=== PATIENT | female | born 1950 | race American Indian/Alaskan Native ===

== ENCOUNTER 2017-02-19 11:09 | Inpatient (IN) | payer MEDICARE ==
[2017-02-19 11:54] LABS: Basophils % (Auto) 0.6 % (0.0-1.8); Eosinophils % (Auto) 1.9 % (0.0-4.3); Mean Corpuscular HGB Conc 31 % (30-34); Mean Corpuscular Volume 83 fl (79-97); Platelet Count 340 K/mm3 (140-440); Red Blood Count 4.74 M/mm3 (3.65-5.03); Red Cell Distribution Width 15.6 % (13.2-15.2); White Blood Count 12.2 K/mm3 (4.5-11.0)
[2017-02-19 12:03] LABS: Hematocrit 39.2 % (30.3-42.9); Mean Corpuscular Hemoglobin 25 pg (28-32)
[2017-02-19 12:21] LABS: Albumin 3.7 g/dL (3.9-5); Albumin/Globulin Ratio 1.3 %; BUN/Creatinine Ratio 14.28; Bilirubin,Total 0.3 mg/dL (0.1-1.2); Chloride 106.1 mmol/L (98-107); Potassium 4.5 mmol/L (3.6-5.0); Total Protein 6.5 g/dL (6.3-8.2)
[2017-02-19 12:22] LABS: INR 1.05 (0.87-1.13)
[2017-02-19 12:23] LABS: Partial Thromboplastin Time 25.4 Sec. (24.2-36.6)
--- NOTE | 2017-02-19 13:00 | XRay Report ---
AP CHEST: HISTORY: Dyspnea AP view of the chest demonstrates a normal mediastinal and cardiac contour with clear lungs and normal bony and soft tissue structures. IMPRESSION: Unremarkable AP chest.
--- NOTE | 2017-02-19 13:52 | Emergency Department Report ---
ED General Adult HPI - General Chief complaint: Dyspnea/Respdistress Stated complaint: SVT Time Seen by Provider: 02/19/17 11:38 Source: patient, EMS Mode of arrival: Stretcher Limitations: No Limitations - History of Present Illness Initial comments: Pt was transported via EMS for evaluation of a rapid heart rate. She was found to be in SVT at approximately 160. She was cardioverted with 6 mgs of Adenosene. The patient states that approximately 6 months ago she had a similar episode but she was not seen by a director online marketing or in the emergency department. She denies any previous treatment by a director online marketing. She is somewhat guarded about giving medical history. She states she does not know her medications that she is on medicine for hypertension and diabetes. She stated she had some shortness of breath with the tachycardia but no chest discomfort. She is asymptomatic at this time after successful cardioversion with adenosine. -: Sudden, minutes(s) Consistency: now resolved Improves with: none Worsens with: none Associated Symptoms: denies other symptoms Treatments Prior to Arrival: none - Related Data Home Medications Medication Instructions Recorded Confirmed Last Taken Albuterol Sulfate [Ventolin HFA] 1 puff IH Q4-6H 02/19/17 02/19/17 02/18/17 Budesoni/Formotero 160-4.5(Nf) 2 puff IH BID 02/19/17 02/19/17 02/18/17 [Symbicort 160-4.5 (Nf)] Simvastatin [Zocor TAB] 20 mg PO QHS 02/19/17 02/19/17 02/18/17 Tamoxifen Citrate 10 mg PO QDAY 02/19/17 02/19/17 02/18/17 Valsartan/Hydrochlorothiazide 1 each PO DAILY 02/19/17 02/19/17 02/18/17 [Valsartan-Hctz 80-12.5 mg Tab] metFORMIN [Glucophage] 500 mg PO QDAY 02/19/17 02/19/17 02/18/17 Allergies Allergy/AdvReac Type Severity Reaction Status Date / Time No Known Allergies Allergy Unverified 02/19/17 11:19 ED Review of Systems ROS: Stated complaint: SVT Other details as noted in HPI Constitutional: denies: chills, fever Eyes: denies: eye pain, eye discharge, vision change ENT: denies: ear pain, throat pain Respiratory: shortness of breath. denies: cough, wheezing Cardiovascular: denies: chest pain, palpitations Endocrine: no symptoms reported Gastrointestinal: denies: abdominal pain, nausea, diarrhea Genitourinary: denies: urgency, dysuria, discharge Musculoskeletal: denies: back pain, joint swelling, arthralgia Skin: denies: rash, lesions Neurological: denies: headache, weakness, paresthesias Psychiatric: denies: anxiety, depression Hematological/Lymphatic: denies: easy bleeding, easy bruising ED Past Medical Hx - Past Medical History Previous Medical History?: Yes Hx Hypertension: Yes Hx Diabetes: Yes Hx Asthma: Yes - Surgical History Past Surgical History?: Yes Additional Surgical History: tubaligation - Social History Smoking Status: Never Smoker Substance Use Type: None - Medications Home Medications: Home Medications Medication Instructions Recorded Confirmed Last Taken Type Albuterol Sulfate [Ventolin HFA] 1 puff IH Q4-6H 02/19/17 02/19/17 02/18/17 History Budesoni/Formotero 160-4.5(Nf) 2 puff IH BID 02/19/17 02/19/17 02/18/17 History [Symbicort 160-4.5 (Nf)] Simvastatin [Zocor TAB] 20 mg PO QHS 02/19/17 02/19/17 02/18/17 History Tamoxifen Citrate 10 mg PO QDAY 02/19/17 02/19/17 02/18/17 History Valsartan/Hydrochlorothiazide 1 each PO DAILY 02/19/17 02/19/17 02/18/17 History [Valsartan-Hctz 80-12.5 mg Tab] metFORMIN [Glucophage] 500 mg PO QDAY 02/19/17 02/19/17 02/18/17 History ED Physical Exam - General Limitations: No Limitations General appearance: alert, in no apparent distress - Head Head exam: Present: atraumatic, normocephalic - Eye Eye exam: Present: normal appearance. Absent: scleral icterus - ENT ENT exam: Present: mucous membranes moist - Neck Neck exam: Present: normal inspection - Respiratory Respiratory exam: Present: normal lung sounds bilaterally. Absent: respiratory distress - Cardiovascular Cardiovascular Exam: Present: regular rate, normal rhythm. Absent: systolic murmur, diastolic murmur, rubs, gallop - GI/Abdominal GI/Abdominal exam: Present: soft, normal bowel sounds. Absent: distended, tenderness, guarding, rebound, rigid - Extremities Exam Extremities exam: Present: normal inspection - Back Exam Back exam: Present: normal inspection - Neurological Exam Neurological exam: Present: alert, oriented X3, CN II-XII intact. Absent: motor sensory deficit - Psychiatric Psychiatric exam: Present: normal affect, normal mood - Skin Skin exam: Present: warm, dry, intact, normal color. Absent: rash ED Course Vital Signs 02/19/17 02/19/17 02/19/17 11:06 11:12 11:31 Temperature 97.9 F Pulse Rate 96 H 94 H 93 H Respiratory 10 L 19 12 Rate Blood Pressure 94/64 94/64 Blood Pressure 94/64 [Left] O2 Sat by Pulse 99 99 100 Oximetry 02/19/17 02/19/17 02/19/17 11:35 12:00 12:31 Temperature Pulse Rate 90 87 Respiratory 19 13 18 Rate Blood Pressure 101/56 101/56 Blood Pressure [Left] O2 Sat by Pulse 99 99 Oximetry 02/19/17 02/19/17 02/19/17 13:00 13:31 14:00 Temperature Pulse Rate 91 H 88 85 Respiratory 22 21 17 Rate Blood Pressure 84/51 84/51 116/72 Blood Pressure [Left] O2 Sat by Pulse 99 98 96 Oximetry - Reevaluation(s) Reevaluation #1: The patient states now that she has been feeling weak and nauseated for the last several days. Although I was not notified by the nurse I do see that the patient has had several blood pressure readings in the 80s. Therefore we will admit the patient for further care and evaluation in the hospital today. 02/19/17 15:36 Reevaluation #2: Patient was noted to be intermittently hypotensive. She was admitted to the hospital service further care and evaluation and cardiac workup. 02/19/17 16:33 ED Medical Decision Making - Lab Data Result diagrams: 02/19/17 11:39 02/19/17 11:39 Laboratory Results - last 24 hr 02/19/17 02/19/17 02/19/17 11:39 11:39 11:55 WBC 12.2 H RBC 4.74 Hgb 12.0 Hct 39.2 MCV 83 MCH 25 L MCHC 31 RDW 15.6 H Plt Count 340 Lymph % (Auto) 12.2 L [place] % (Auto) 6.6 Eos % (Auto) 1.9 Baso % (Auto) 0.6 Lymph # 1.5 [place] # 0.8 Eos # 0.2 Baso # 0.1 Seg Neutrophils % 78.7 H Seg Neutrophils # 9.6 H PT 13.6 INR 1.05 APTT 25.4 Sodium 141 Potassium 4.5 Chloride 106.1 Carbon Dioxide 19 L Anion Gap 20 BUN 20 H Creatinine 1.4 H Estimated GFR 45 BUN/Creatinine Ratio 14.28 Glucose 156 H Calcium 10.0 Total Bilirubin 0.30 ALT 12 Alkaline Phosphatase 65 Total Protein 6.5 Albumin 3.7 L Albumin/Globulin Ratio 1.3 Laboratory Results - last 24 hr 02/19/17 02/19/17 02/19/17 11:39 11:39 11:55 WBC 12.2 H RBC 4.74 Hgb 12.0 Hct 39.2 MCV 83 MCH 25 L MCHC 31 RDW 15.6 H Plt Count 340 Lymph % (Auto) 12.2 L [place] % (Auto) 6.6 Eos % (Auto) 1.9 Baso % (Auto) 0.6 Lymph # 1.5 [place] # 0.8 Eos # 0.2 Baso # 0.1 Seg Neutrophils % 78.7 H Seg Neutrophils # 9.6 H PT 13.6 INR 1.05 APTT 25.4 Sodium 141 Potassium 4.5 Chloride 106.1 Carbon Dioxide 19 L Anion Gap 20 BUN 20 H Creatinine 1.4 H Estimated GFR 45 BUN/Creatinine Ratio 14.28 Glucose 156 H Calcium 10.0 Total Bilirubin 0.30 ALT 12 Alkaline Phosphatase 65 Total Protein 6.5 Albumin 3.7 L Albumin/Globulin Ratio 1.3 AST 18 Laboratory Results - last 24 hr 02/19/17 02/19/17 02/19/17 11:39 11:39 11:48 WBC 12.2 H RBC 4.74 Hgb 12.0 Hct 39.2 MCV 83 MCH 25 L MCHC 31 RDW 15.6 H Plt Count 340 Lymph % (Auto) 12.2 L [place] % (Auto) 6.6 Eos % (Auto) 1.9 Baso % (Auto) 0.6 Lymph # 1.5 [place] # 0.8 Eos # 0.2 Baso # 0.1 Seg Neutrophils % 78.7 H Seg Neutrophils # 9.6 H PT INR APTT Sodium 141 Potassium 4.5 Chloride 106.1 Carbon Dioxide 19 L Anion Gap 20 BUN 20 H Creatinine 1.4 H Estimated GFR 45 BUN/Creatinine Ratio 14.28 Glucose 156 H Calcium 10.0 Magnesium 2.00 Total Bilirubin 0.30 AST 18 ALT 12 Alkaline Phosphatase 65 NT-Pro-B Natriuret Pep 2639 H Total Protein 6.5 Albumin 3.7 L Albumin/Globulin Ratio 1.3 TSH Free T4 02/19/17 02/19/17 11:55 11:55 WBC RBC Hgb Hct MCV MCH MCHC RDW Plt Count Lymph % (Auto) [place] % (Auto) Eos % (Auto) Baso % (Auto) Lymph # [place] # Eos # Baso # Seg Neutrophils % Seg Neutrophils # PT 13.6 INR 1.05 APTT 25.4 Sodium Potassium Chloride Carbon Dioxide Anion Gap BUN Creatinine Estimated GFR BUN/Creatinine Ratio Glucose Calcium Magnesium Total Bilirubin AST ALT Alkaline Phosphatase NT-Pro-B Natriuret Pep Total Protein Albumin Albumin/Globulin Ratio TSH 1.120 Free T4 1.10 - EKG Data -: EKG Interpreted by [facility] EKG shows normal: sinus rhythm (post cardioversion EKG), axis, intervals, QRS complexes, ST-T waves - EKG Data Interpretation: LVH (consider LVH. Left atrial abnormality. Inferolateral ST- T wave changes.) 02/19/17 14:35 Pre-hospital EKG shows SVT at approximately 160. There are diffuse repolarization abnormalities. - Radiology Data Chest x-ray no acute findings Critical care attestation.: If time is entered above; I have spent that time in minutes in the direct care of this critically ill patient, excluding procedure time. ED Disposition Clinical Impression: SVT (supraventricular tachycardia) Disposition: OP ADMITTED IP TO THIS HOSP Is pt being admited?: Yes Does the pt Need Aspirin: Yes Condition: Stable Referrals: PRIMARY CARE, [Primary Care Provider] - 3-5 Days Time of Disposition: 16:33
--- NOTE | 2017-02-19 14:23 | Admit Criteria Form ---
Admission Criteria Documentation: TELEMETRY CARE Telemetry Admission Guidelines (Place 'X' for any and all applicable criteria): Admission to telemetry [A] may be indicated for ANY ONE of the following(1)(2)(3 )(4)(5): [X ]I. Cardiac disease, including ANY ONE of the following (9)(10)(11)(12)( 13): [ ]a) Postacute NV [ ]b) Low-risk patients with ST-segment elevation NV who have undergone successful percutaneous coronary intervention [ ]c) Unstable angina [ ]d) Suspected NV (until it is ruled out) [ ]e) Post cardiac surgery (first 48 to 72 hours unless complications occur) [X ]f) Acute arrhythmias (including significant tachycardia or bradycardia) [B] [ ]g) Firing of an implantable cardioverter defibrillator [C] [ ]h) Suspected pacemaker or implantable cardioverter defibrillator malfunction (10) [ ]i) New administration or adjustment of an antiarrhythmic drug [D ] [ ]j) Child admitted for acute congestive heart failure [ ]j) Long QT syndrome [ ]k) Advanced heart block (eg, second-degree Mobitz type II, third- degree heart block) [ ]l) Acute myocarditis or pericarditis [ ]m) Short-term (ambulatory or inpatient) monitoring after a cardiac procedure as indicated by ANY ONE of the following [E]: [ ]i) Electrophysiologic studies [ ]ii) Percutaneous coronary intervention with stent placement [ ]iii) Pacemaker placement with cardiac conduction defect [ ]iv) Implantable cardiac defibrillator placement [ ]II. Drug overdose or poisoning with substance that causes arrhythmias or QT prolongation (eg, phenothiazines, sympathomimetic agents, cyclic antidepressants, digitalis, antiarrhythmic drugs)(15) [ ]III. Short-term (ambulatory or inpatient) monitoring after therapeutic or diagnostic procedure requiring conscious sedation or anesthesia (eg, endoscopy, elective cardioversion) [ ]IV. Acute cerebrovascular even[F](18) [ ]V. Massive blood transfusion (eg, at least 10 units of packed red blood cells in 24 hours) [ ]. Variceal bleeding after endoscopy, sclerotherapy, or IV vasopressin [ ]VII. Uncorrected electrolyte abnormalities associated with an increased risk of dangerous arrhythmia [G]; examples include [ ]a) Hyperkalemia with attributable ECG changes [ ]b) Potassium greater than 6.5 mmol/L (mEq/L) in a patient without history of chronic renal disease [ ]c) Prolonged QT attributed to hypokalemia, hypomagnesemia, or hypocalcemia [ ]VIII.Unexplained syncope or other neurologic event suspected of being due to arrhythmia due to a finding that increases risk; examples include(19)(20)(21): [ ]a) High-risk ECG findings (eg, bifascicular block, bradycardia, abnormal QT interval, ventricular pre- excitation) [ ]b) History of previous syncope due to arrhythmia [ ]c) Abnormal ventricular function (eg, reduced ejection fraction ) [ ]d) Exertional or supine syncope [ ]e) Concerning syncope characteristics (eg, sudden loss of consciousness without prodrome) [ ]f) Family history of sudden [ ]g) Use of arrhythmogenic medication [ ]h) Suspected cardiac ischemia [ ]i) Known channelopathy (eg, long QT syndrome, Brugada syndrome, or catecholaminergic paroxysmal ventricular tachycardia) [ ]j) Known structural heart disease (eg, hypertrophic cardiomyopathy , severe valvular disease) [ ]k) Palpitations preceding syncope The original [employer] content created by [employer] has been revised. The portions of the content which have been revised are identified through the use of italic text or in bold, and [email or web address] has neither reviewed nor approved the modified material. All other unmodified content is copyright [employer]. Please see references footnoted in the original [employer] edition 2016 Admission Criteria Met: Yes
[2017-02-19] MEDS ORDERED: BABY ASPIRIN PO ONE (16:35)
--- NOTE | 2017-02-19 23:37 | Event Note ---
Date: 02/19/17 See H/p in reports SVT-resolved HTN T2DM HLD COPD
[2017-02-20] MEDS ORDERED: PROAIR IH SCH (00:30)
[2017-02-20] MEDS ORDERED: PROVENTIL IH PRN (00:33)
--- NOTE | 2017-02-20 02:11 | History and Physical Report ---
CHIEF COMPLAINT: Palpitations. HISTORY OF PRESENT ILLNESS: A 66-year-old female brought in by EMS for heart rate of 160 per minute. Was cardioverted with 6 mg of adenosine. She is approximately . Has not seen a head teacher. She is somewhat guarded about giving medical history and does not know the medications. Sudden onset of palpitations. PAST MEDICAL HISTORY: Significant for COPD, hyperlipidemia, breast cancer, hypertension, type 2 diabetes. CURRENT MEDICATIONS: Albuterol, Symbicort, simvastatin, tamoxifen and valsartan and metformin. PAST SURGICAL HISTORY: Tubal ligation. SOCIAL HISTORY: Does not smoke. No alcohol, no recreational drugs. FAMILY HISTORY: Significant for hypertension. REVIEW OF SYSTEMS: Significant for a sudden onset of palpitations, which has resolved with adenosine. Some shortness of breath present. Otherwise, review of systems is essentially negative. PHYSICAL EXAMINATION: GENERAL: Elderly female, cooperative during examination. VITAL SIGNS: Blood pressure is 107/62, temperature is 98.3, pulse 93, respirations 16. HEENT: Unremarkable. Pupils equal and reactive. NECK: Supple, no lymphadenopathy, no thyromegaly. LUNGS: Clear to auscultation and percussion. Good air entry. CARDIOVASCULAR: S1, S2 heard. No gallop, no murmur, no rub. Apical impulse in left fifth intercostal space and midclavicular line. ABDOMEN: Soft and benign. No hepatosplenomegaly. No guarding, no rigidity. Hernial orifices are normal. EXTREMITIES: Good pedal pulses. No pedal edema. CENTRAL NERVOUS SYSTEM: Alert and oriented x 4, nonfocal exam. SKIN: Normal. LABORATORY DATA: Significant for BNP of 2639. Hemoglobin and hematocrit are within normal limits. Glucose is 156 and 134. Albumin is 3.7, slightly low. ASSESSMENT AND PLAN: 1. Supraventricular tachycardia, resolved. The patient initiated on Cardizem to prevent future supraventricular tachycardia. Cardizem-CD 120 daily. 2. Insulin-dependent type 2 diabetes, continue metformin. 3. Hyperlipidemia. Continue simvastatin. 4. Hypertension. Continue valsartan/hydrochlorothiazide 80/12.5. 5. Chronic obstructive pulmonary disease, continue Symbicort 2 puffs b.i.d. 6. Deep venous thrombosis prophylaxis, Lovenox 40 mg subcutaneously daily. [facility]# [id number] PAL/BJ
[2017-02-20] MEDS: NOVOLOG SUB-Q SCH ×2 (08:05→21:17)
[2017-02-20] MEDS: PULMICORT IH SCH ×2 (09:15→20:12)
[2017-02-20] MEDS: BROVANA NEBU IH SCH ×2 (09:15→20:12)
[2017-02-20] MEDS: HCTZ PO SCH (09:27)
[2017-02-20] MEDS: DIOVAN PO SCH (09:27)
[2017-02-20] MEDS: GLUCOPHAGE PO SCH (09:27)
[2017-02-20] MEDS: CARDIZEM CD PO SCH (09:28)
[2017-02-20] MEDS ORDERED: HYDROCHLOROTHIAZIDE PO SCH (10:00)
[2017-02-20] MEDS ORDERED: NON-FORMULARY (Budesoni/Formotero 160-4.5(Nf) 2 PUFF) IH SCH (10:00)
[2017-02-20] MEDS ORDERED: VALSARTAN PO SCH (10:00)
[2017-02-20] MEDS ORDERED: TAMOXIFEN CITRATE 10 MG PO SCH (10:00)
--- NOTE | 2017-02-20 10:42 | Consultation ---
History of Present Illness Consult date: 02/20/17 Requesting physician: JD SIGALA Consult reason: other (svt) History of present illness: This is a 66-year-old -[place] female with history of hypertension, hyperlipidemia, diabetes who has been having shortness of breath and associated palpitations on and off patient unable describe the duration was brought by EMS and was in heart rate of 170 and patient received 6 mg of adenosine and patient converted back to normal sinus rhythm patient since has not had any further episodes of palpitations on the monitor patient states shortness of breath has improved. Patient is a emotional with the recent loss of her sister. Patient denies any previous episodes of palpitations. Patient has some shortness of breath with exertion. Patient denies any caffeine intake or chocolate did not have any precipitating factors prior to that and no syncope. And patient had no melan or fever or chills Past History Past Medical History: COPD, diabetes, hypertension, hyperlipidemia, other ( questionable breast cancer) Past Surgical History: Other (tubal ligation) Social history: no significant social history Family history: no significant family history Medications and Allergies Allergies Allergy/AdvReac Type Severity Reaction Status Date / Time No Known Allergies Allergy Verified 02/20/17 00:32 Home Medications Medication Instructions Recorded Confirmed Last Taken Type Albuterol Sulfate [Ventolin HFA] 1 puff IH Q4-6H 02/19/17 02/19/17 02/18/17 History Budesoni/Formotero 160-4.5(Nf) 2 puff IH BID 02/19/17 02/19/17 02/18/17 History [Symbicort 160-4.5 (Nf)] Simvastatin [Zocor TAB] 20 mg PO QHS 02/19/17 02/19/17 02/18/17 History Tamoxifen Citrate 10 mg PO QDAY 02/19/17 02/19/17 02/18/17 History Valsartan/Hydrochlorothiazide 1 each PO DAILY 02/19/17 02/19/17 02/18/17 History [Valsartan-Hctz 80-12.5 mg Tab] metFORMIN [Glucophage] 500 mg PO QDAY 02/19/17 02/19/17 02/18/17 History Active Meds: Active Medications Albuterol (Proventil) 2.5 mg IH Q4HRT PRN PRN Reason: Shortness Of Breath Arformoterol Tartrate (Brovana Nebu) 15 mcg IH Q12HRT [facility] Last Admin: 02/20/17 09:15 Dose: 15 mcg Budesonide (Pulmicort) 1 mg IH Q12HRT [facility] Last Admin: 02/20/17 09:15 Dose: 1 mg Diltiazem HCl (Cardizem Cd) 120 mg PO QDAY [facility] Last Admin: 02/20/17 09:28 Dose: 120 mg Hydrochlorothiazide (Hctz) 12.5 mg PO QDAY [facility] Last Admin: 02/20/17 09:27 Dose: 12.5 mg Insulin Aspart (Novolog) 0 units SUB-Q ACHS [facility] PRN Reason: Protocol Last Admin: 02/20/17 08:05 Dose: Not Given Metformin HCl (Glucophage) 500 mg PO QDAY [facility] Last Admin: 02/20/17 09:27 Dose: 500 mg Miscellaneous Medication (Tamoxifen Citrate [Tamoxifen Citrate]) 10 mg PO QDAY [facility] Simvastatin (Zocor) 20 mg PO QHS [facility] Valsartan (Diovan) 80 mg PO QDAY [facility] Last Admin: 02/20/17 09:27 Dose: 80 mg Review of Systems All systems: negative (HPI) Physical Examination Vital Signs Pulse Resp Pulse Ox 96 H 10 L 99 02/19/17 11:06 02/19/17 11:06 02/19/17 11:06 General appearance: no acute distress, well-nourished HEENT: Positive: PERRL, Mucus Membranes Moist Neck: Positive: neck supple, trachea midline Cardiac: Positive: Reg Rate and Rhythm, S1/S2. Negative: Audible Murmur Lungs: Positive: clear to auscultation, Normal Breath Sounds Neuro: Positive: Grossly Intact Abdomen: Positive: Soft, Active Bowel Sounds. Negative: Tender, Distended Female genitourinary: deferred Skin: Positive: Clear Incision: Cardiac Cath Site Musculoskeletal: No Pain, Normal Range of Motion Extremities: Present: normal. Absent: edema Results 02/19/17 11:39 02/19/17 11:39 - Imaging and Cardiology Echo: pending EKG interpretations - Telemetry EKG Rhythm: Sinus Rhythm (sinus rhythm with LVH with strain pattern and EMS EKG SVT with LVH with strain) Assessment and Plan svt sob htn chol dm copd rec: cont cardizem, awaiting echo and treadmill thallium to ilict svt and quantify sob and elevated bnp - Patient Problems (1) SOBOE (shortness of breath on exertion) Current Visit: Yes Status: Acute (2) Hyperlipemia, mixed Current Visit: Yes Status: Chronic (3) Diabetes mellitus Current Visit: Yes Status: Chronic Qualifiers: Diabetes mellitus type: type 2 Diabetes mellitus complication status: without complication Diabetes mellitus complication detail: D Diabetic retinopathy severity: D Proliferative retinopathy type: P Diabetes mellitus macular edema: D Diabetes mellitus extermination supervisor insulin use: with extermination supervisor use Laterality: L Chronic kidney disease stage: C Qualified Code(s): E11.9 - Type 2 diabetes mellitus without complications; Z79.4 - terminal operator (current) use of insulin (4) Hypertension Current Visit: Yes Status: Chronic Qualifiers: Hypertension type: essential hypertension Qualified Code(s): I10 - Essential (primary) hypertension (5) SVT (supraventricular tachycardia) Current Visit: Yes Status: Acute (6) COPD (chronic obstructive pulmonary disease) Current Visit: Yes Status: Chronic Qualifiers: COPD type: C Chronic bronchitis type: simple Emphysema type: E Qualified Code(s): J41.0 - Simple chronic bronchitis
[2017-02-20] MEDS ORDERED: TOPROL XL PO SCH (11:00)
--- NOTE | 2017-02-20 11:40 | Progress Note ---
Assessment and Plan Assessment and plan: Supraventricular tachycardia. Patient is status post adenosine. Currently normal sinus rhythm. Cardiology following. Follow-up echocardiogram and treadmill thallium. Check TSH. Dyspnea. Follow-up above studies. Check d-dimer. Hypertension. Resume antihypertensives medications. Diabetes mellitus type II. Continue Accu-Cheks and sliding scale. Hyperlipidemia. Continue medications. Acute COPD exacerbation. Patient will place on the pathway and started on IV steroids, nebulizers and consider empiric antibiotics. History Interval history: No new issues overnight. No chest pain or palpitations. Hospitalist Physical - Constitutional Vitals: Temp Pulse Resp BP Pulse Ox 98.1 F 92 H 15 110/70 99 02/20/17 08:48 02/20/17 09:30 02/20/17 09:30 02/20/17 09:28 02/20/17 08:48 General appearance: Present: no acute distress, well-nourished - EENT Eyes: Present: PERRL, EOM intact ENT: hearing intact, clear oral mucosa, dentition normal - Neck Neck: Present: supple, normal ROM - Respiratory Respiratory effort: normal Respiratory: bilateral: CTA - Cardiovascular Rhythm: regular Heart Sounds: Present: S1 & S2. Absent: gallop, rub - Extremities Extremities: no ischemia, No edema, Full ROM - Abdominal General gastrointestinal: soft, non-tender, non-distended, normal bowel sounds - Integumentary Integumentary: Present: clear, warm, dry - Neurologic Neurologic: CNII-XII intact, moves all extremities Results - Labs CBC & Chem 7: 02/19/17 11:39 02/19/17 11:39 Labs: Laboratory Last Values WBC 12.2 K/mm3 (4.5-11.0) H 02/19/17 11:39 RBC 4.74 M/mm3 (3.65-5.03) 02/19/17 11:39 Hgb 12.0 gm/dl (10.1-14.3) 02/19/17 11:39 Hct 39.2 % (30.3-42.9) 02/19/17 11:39 MCV 83 fl (79-97) 02/19/17 11:39 MCH 25 pg (28-32) L 02/19/17 11:39 MCHC 31 % (30-34) 02/19/17 11:39 RDW 15.6 % (13.2-15.2) H 02/19/17 11:39 Plt Count 340 K/mm3 (140-440) 02/19/17 11:39 Lymph % (Auto) 12.2 % (13.4-35.0) L 02/19/17 11:39 [place] % (Auto) 6.6 % (0.0-7.3) 02/19/17 11:39 Eos % (Auto) 1.9 % (0.0-4.3) 02/19/17 11:39 Baso % (Auto) 0.6 % (0.0-1.8) 02/19/17 11:39 Lymph # 1.5 K/mm3 (1.2-5.4) 02/19/17 11:39 [place] # 0.8 K/mm3 (0.0-0.8) 02/19/17 11:39 Eos # 0.2 K/mm3 (0.0-0.4) 02/19/17 11:39 Baso # 0.1 K/mm3 (0.0-0.1) 02/19/17 11:39 Seg Neutrophils % 78.7 % (40.0-70.0) H 02/19/17 11:39 Seg Neutrophils # 9.6 K/mm3 (1.8-7.7) H 02/19/17 11:39 PT 13.6 Sec. (12.2-14.9) 02/19/17 11:55 INR 1.05 (0.87-1.13) 02/19/17 11:55 APTT 25.4 Sec. (24.2-36.6) 02/19/17 11:55 Sodium 141 mmol/L (137-145) 02/19/17 11:39 Potassium 4.5 mmol/L (3.6-5.0) 02/19/17 11:39 Chloride 106.1 mmol/L (98-107) 02/19/17 11:39 Carbon Dioxide 19 mmol/L (22-30) L 02/19/17 11:39 Anion Gap 20 mmol/L 02/19/17 11:39 BUN 20 mg/dL (7-17) H 02/19/17 11:39 Creatinine 1.4 mg/dL (0.7-1.2) H 02/19/17 11:39 Estimated GFR 45 ml/min 02/19/17 11:39 BUN/Creatinine Ratio 14.28 % 02/19/17 11:39 Glucose 156 mg/dL (65-100) H 02/19/17 11:39 POC Glucose 109 (70-105) H 02/20/17 08:32 Calcium 10.0 mg/dL (8.4-10.2) 02/19/17 11:39 Magnesium 2.00 mg/dL (1.7-2.3) 02/19/17 11:48 Total Bilirubin 0.30 mg/dL (0.1-1.2) 02/19/17 11:39 AST 18 units/L (5-40) 02/19/17 11:39 ALT 12 units/L (7-56) 02/19/17 11:39 Alkaline Phosphatase 65 units/L (35-129) 02/19/17 11:39 NT-Pro-B Natriuret Pep 2639 pg/mL (0-900) H 02/19/17 11:48 Total Protein 6.5 g/dL (6.3-8.2) 02/19/17 11:39 Albumin 3.7 g/dL (3.9-5) L 02/19/17 11:39 Albumin/Globulin Ratio 1.3 % 02/19/17 11:39 TSH 1.120 mlU/mL (0.270-4.200) 02/19/17 11:55 Free T4 1.10 ng/dL (0.76-1.46) 02/19/17 11:55
[2017-02-20] MEDS: DUONEB 0.5 MG-3 MG/3 ML SOLN IH SCH ×2 (14:59→20:13)
[2017-02-20] MEDS: ZOCOR PO SCH (21:17)
[2017-02-21] MEDS: NOVOLOG SUB-Q SCH ×5 (00:07→22:59)
[2017-02-21] MEDS ORDERED: TYLENOL PO PRN (00:09)
[2017-02-21] MEDS: DUONEB 0.5 MG-3 MG/3 ML SOLN IH SCH ×4 (02:30→19:45)
[2017-02-21 05:01] LABS: BUN/Creatinine Ratio 15.83; Calcium 10.5 mg/dL (8.4-10.2); Chloride 102.3 mmol/L (98-107); Potassium 4.5 mmol/L (3.6-5.0)
[2017-02-21 05:10] LABS: Hematocrit 36.2 % (30.3-42.9); Hemoglobin 11.6 gm/dl (10.1-14.3); Mean Corpuscular HGB Conc 32 % (30-34); Mean Corpuscular Volume 80 fl (79-97); Platelet Count 295 K/mm3 (140-440); Red Cell Distribution Width 15.4 % (13.2-15.2); White Blood Count 10.1 K/mm3 (4.5-11.0)
[2017-02-21 05:11] LABS: Mean Corpuscular Hemoglobin 26 pg (28-32)
[2017-02-21] MEDS ORDERED: LEXISCAN IV ONE ×2 (08:16)
[2017-02-21 09:03] LABS: Basophils % (Manual) 0 % (0.0-1.8); Blastocytes % (Manual) 0 %; Eosinophils % (Manual) 0 % (0.0-4.3)
[2017-02-21 09:04] LABS: Anisocytosis 1+; Diff Status Complete; Platelet Estimate Consistent w Auto
--- NOTE | 2017-02-21 10:49 | Progress Note ---
Assessment and Plan Assessment and plan: Supraventricular tachycardia. Patient is status post adenosine. Currently normal sinus rhythm. Cardiology following. Follow-up echocardiogram and treadmill thallium. Check TSH. Elevated d-dimer. Check CT of the chest rule out PE. Hypertension. Resume antihypertensives medications. Diabetes mellitus type II. Continue Accu-Cheks and sliding scale. Hyperlipidemia. Continue medications. Acute COPD exacerbation. Patient will place on the pathway and started on IV steroids, nebulizers and consider empiric antibiotics. History Interval history: No new issues overnight. No chest pain or palpitations. Hospitalist Physical - Constitutional Vitals: Temp Pulse Resp BP Pulse Ox 97.6 F 105 H 20 131/70 95 02/21/17 04:38 02/21/17 09:53 02/21/17 04:38 02/21/17 09:53 02/21/17 04:38 General appearance: Present: no acute distress, well-nourished - EENT Eyes: Present: PERRL, EOM intact ENT: hearing intact, clear oral mucosa, dentition normal - Neck Neck: Present: supple, normal ROM - Respiratory Respiratory effort: normal Respiratory: bilateral: CTA - Cardiovascular Rhythm: regular Heart Sounds: Present: S1 & S2. Absent: gallop, rub - Extremities Extremities: no ischemia, No edema, Full ROM - Abdominal General gastrointestinal: soft, non-tender, non-distended, normal bowel sounds - Integumentary Integumentary: Present: clear, warm, dry - Neurologic Neurologic: CNII-XII intact, moves all extremities Results - Labs CBC & Chem 7: 02/21/17 03:25 02/21/17 03:25 Labs: Laboratory Last Values WBC 10.1 K/mm3 (4.5-11.0) 02/21/17 03:25 RBC 4.50 M/mm3 (3.65-5.03) 02/21/17 03:25 Hgb 11.6 gm/dl (10.1-14.3) 02/21/17 03:25 Hct 36.2 % (30.3-42.9) 02/21/17 03:25 MCV 80 fl (79-97) D 02/21/17 03:25 MCH 26 pg (28-32) L 02/21/17 03:25 MCHC 32 % (30-34) 02/21/17 03:25 RDW 15.4 % (13.2-15.2) H 02/21/17 03:25 Plt Count 295 K/mm3 (140-440) 02/21/17 03:25 Lymph % (Auto) 12.2 % (13.4-35.0) L 02/19/17 11:39 [place] % (Auto) 6.6 % (0.0-7.3) 02/19/17 11:39 Eos % (Auto) 1.9 % (0.0-4.3) 02/19/17 11:39 Baso % (Auto) 0.6 % (0.0-1.8) 02/19/17 11:39 Lymph # 1.5 K/mm3 (1.2-5.4) 02/19/17 11:39 [place] # 0.8 K/mm3 (0.0-0.8) 02/19/17 11:39 Eos # 0.2 K/mm3 (0.0-0.4) 02/19/17 11:39 Baso # 0.1 K/mm3 (0.0-0.1) 02/19/17 11:39 Add Manual Diff Complete 02/21/17 03:25 Total Counted 100 02/21/17 03:25 Seg Neutrophils % Farm Product Purchaser 02/21/17 03:25 Seg Neuts % (Manual) 93.0 % (40.0-70.0) H 02/21/17 03:25 Band Neutrophils % 0 % 02/21/17 03:25 Lymphocytes % (Manual) 6.0 % (13.4-35.0) L 02/21/17 03:25 Reactive Lymphs % (Man) 0 % 02/21/17 03:25 Monocytes % (Manual) 1.0 % (0.0-7.3) 02/21/17 03:25 Eosinophils % (Manual) 0 % (0.0-4.3) 02/21/17 03:25 Basophils % (Manual) 0 % (0.0-1.8) 02/21/17 03:25 Metamyelocytes % 0 % 02/21/17 03:25 Myelocytes % 0 % 02/21/17 03:25 Promyelocytes % 0 % 02/21/17 03:25 Blast Cells % 0 % 02/21/17 03:25 Nucleated RBC % Not Reportable 02/21/17 03:25 Seg Neutrophils # 9.6 K/mm3 (1.8-7.7) H 02/19/17 11:39 Seg Neutrophils # Man 9.4 K/mm3 (1.8-7.7) H 02/21/17 03:25 Band Neutrophils # 0.0 K/mm3 02/21/17 03:25 Lymphocytes # (Manual) 0.6 K/mm3 (1.2-5.4) L 02/21/17 03:25 Abs React Lymphs (Man) 0.0 K/mm3 02/21/17 03:25 Monocytes # (Manual) 0.1 K/mm3 (0.0-0.8) 02/21/17 03:25 Eosinophils # (Manual) 0.0 K/mm3 (0.0-0.4) 02/21/17 03:25 Basophils # (Manual) 0.0 K/mm3 (0.0-0.1) 02/21/17 03:25 Metamyelocytes # 0.0 K/mm3 02/21/17 03:25 Myelocytes # 0.0 K/mm3 02/21/17 03:25 Promyelocytes # 0.0 K/mm3 02/21/17 03:25 Blast Cells # 0.0 K/mm3 02/21/17 03:25 WBC Morphology Not Reportable 02/21/17 03:25 Hypersegmented Neuts Not Reportable 02/21/17 03:25 Hyposegmented Neuts Not Reportable 02/21/17 03:25 Hypogranular Neuts Not Reportable 02/21/17 03:25 Smudge Cells Not Reportable 02/21/17 03:25 Toxic Granulation Not Reportable 02/21/17 03:25 Toxic Vacuolation Not Reportable 02/21/17 03:25 Dohle Bodies Not Reportable 02/21/17 03:25 Pelger-Huet Anomaly Not Reportable 02/21/17 03:25 Khadar Rods Not Reportable 02/21/17 03:25 Platelet Estimate Consistent w auto 02/21/17 03:25 Clumped Platelets Not Reportable 02/21/17 03:25 Plt Clumps, EDTA Not Reportable 02/21/17 03:25 Large Platelets Not Reportable 02/21/17 03:25 Giant Platelets Not Reportable 02/21/17 03:25 Platelet Satelliting Not Reportable 02/21/17 03:25 Plt Morphology Comment Not Reportable 02/21/17 03:25 RBC Morphology Not Reportable 02/21/17 03:25 Dimorphic RBCs Not Reportable 02/21/17 03:25 Polychromasia Not Reportable 02/21/17 03:25 Hypochromasia Not Reportable 02/21/17 03:25 Poikilocytosis Not Reportable 02/21/17 03:25 Anisocytosis 1+ 02/21/17 03:25 Microcytosis Not Reportable 02/21/17 03:25 Macrocytosis Not Reportable 02/21/17 03:25 Spherocytes Not Reportable 02/21/17 03:25 Pappenheimer Bodies Not Reportable 02/21/17 03:25 Sickle Cells Not Reportable 02/21/17 03:25 Target Cells Not Reportable 02/21/17 03:25 Tear Drop Cells Not Reportable 02/21/17 03:25 Ovalocytes Not Reportable 02/21/17 03:25 Helmet Cells Not Reportable 02/21/17 03:25 [place] Bodies Not Reportable 02/21/17 03:25 [place] Rings Not Reportable 02/21/17 03:25 Ellie Cells Not Reportable 02/21/17 03:25 Bite Cells Not Reportable 02/21/17 03:25 Crenated Cell Not Reportable 02/21/17 03:25 Elliptocytes Not Reportable 02/21/17 03:25 Acanthocytes (Spur) Not Reportable 02/21/17 03:25 Rouleaux Not Reportable 02/21/17 03:25 Hemoglobin C Crystals Not Reportable 02/21/17 03:25 Schistocytes Not Reportable 02/21/17 03:25 Malaria parasites Not Reportable 02/21/17 03:25 Boris Bodies Not Reportable 02/21/17 03:25 Hem Pathologist Commnt No 02/21/17 03:25 PT 13.6 Sec. (12.2-14.9) 02/19/17 11:55 INR 1.05 (0.87-1.13) 02/19/17 11:55 APTT 25.4 Sec. (24.2-36.6) 02/19/17 11:55 D-Dimer 1184.76 ng/mlDDU (0-234) H 02/20/17 14:43 Sodium 137 mmol/L (137-145) 02/21/17 03:25 Potassium 4.5 mmol/L (3.6-5.0) 02/21/17 03:25 Chloride 102.3 mmol/L (98-107) 02/21/17 03:25 Carbon Dioxide 20 mmol/L (22-30) L 02/21/17 03:25 Anion Gap 19 mmol/L 02/21/17 03:25 BUN 19 mg/dL (7-17) H 02/21/17 03:25 Creatinine 1.2 mg/dL (0.7-1.2) 02/21/17 03:25 Estimated GFR 54 ml/min 02/21/17 03:25 BUN/Creatinine Ratio 15.83 % 02/21/17 03:25 Glucose 185 mg/dL (65-100) H 02/21/17 03:25 POC Glucose 184 (70-105) H 02/20/17 21:35 Hemoglobin A1c 7.3 % (4-6) H 02/21/17 03:25 Calcium 10.5 mg/dL (8.4-10.2) H 02/21/17 03:25 Magnesium 2.00 mg/dL (1.7-2.3) 02/19/17 11:48 Total Bilirubin 0.30 mg/dL (0.1-1.2) 02/19/17 11:39 AST 18 units/L (5-40) 02/19/17 11:39 ALT 12 units/L (7-56) 02/19/17 11:39 Alkaline Phosphatase 65 units/L (35-129) 02/19/17 11:39 NT-Pro-B Natriuret Pep 2639 pg/mL (0-900) H 02/19/17 11:48 Total Protein 6.5 g/dL (6.3-8.2) 02/19/17 11:39 Albumin 3.7 g/dL (3.9-5) L 02/19/17 11:39 Albumin/Globulin Ratio 1.3 % 02/19/17 11:39 TSH 0.970 mlU/mL (0.270-4.200) 02/20/17 14:43 Free T4 1.10 ng/dL (0.76-1.46) 02/19/17 11:55
[2017-02-21] MEDS: PULMICORT IH SCH ×2 (11:04→19:45)
[2017-02-21] MEDS: BROVANA NEBU IH SCH ×2 (11:05→19:45)
--- NOTE | 2017-02-21 11:34 | Progress Note ---
Assessment and Plan svt sob htn chol dm copd rec: cont cardizem, patient has normal LV function echocardiogram no further episodes SVT with normal ischemia patient may be discharged on Cardizem and home medications and follow-up for cardiology in the office - Patient Problems (1) SOBOE (shortness of breath on exertion) Current Visit: Yes Status: Acute (2) Hyperlipemia, mixed Current Visit: Yes Status: Chronic (3) Diabetes mellitus Current Visit: Yes Status: Chronic Qualifiers: Diabetes mellitus type: type 2 Diabetes mellitus complication status: without complication Diabetes mellitus complication detail: D Diabetic retinopathy severity: D Proliferative retinopathy type: P Diabetes mellitus macular edema: D Diabetes mellitus terminal gauger supervisor insulin use: with terminal gauger supervisor use Laterality: L Chronic kidney disease stage: C Qualified Code(s): E11.9 - Type 2 diabetes mellitus without complications; Z79.4 - bed bug exterminator (current) use of insulin (4) Hypertension Current Visit: Yes Status: Chronic Qualifiers: Hypertension type: essential hypertension Qualified Code(s): I10 - Essential (primary) hypertension (5) SVT (supraventricular tachycardia) Current Visit: Yes Status: Acute (6) COPD (chronic obstructive pulmonary disease) Current Visit: Yes Status: Chronic Qualifiers: COPD type: C Chronic bronchitis type: simple Emphysema type: E Qualified Code(s): J41.0 - Simple chronic bronchitis Subjective Date of service: 02/21/17 Principal diagnosis: svt Interval history: sob has improved and no more palpations Objective Vital Signs Temp Pulse Pulse Pulse Pulse Resp Resp 02/21/17 11:26 90 20 02/21/17 11:02 102 H 20 02/21/17 09:53 105 H 02/21/17 09:52 106 H 02/21/17 09:51 104 H 02/21/17 09:50 105 H 02/21/17 09:49 101 H 02/21/17 08:43 83 02/21/17 05:00 80 02/21/17 04:38 97.6 F 79 20 02/21/17 00:56 98.2 F 98 H 18 02/20/17 20:30 93 H 02/20/17 20:22 98.9 F 20 02/20/17 20:18 95 H 02/20/17 17:55 98.1 F 102 H 18 02/20/17 15:11 92 H 02/20/17 14:57 94 H 02/20/17 14:54 98.2 F 100 H 18 02/20/17 13:00 92 H Resp BP BP Pulse Ox 02/21/17 11:26 02/21/17 11:02 02/21/17 09:53 131/70 02/21/17 09:52 133/70 02/21/17 09:51 135/80 02/21/17 09:50 153/76 02/21/17 09:49 141/74 02/21/17 08:43 131/80 02/21/17 05:00 02/21/17 04:38 109/70 95 02/21/17 00:56 129/61 100 02/20/17 20:30 20 02/20/17 20:22 106/67 98 02/20/17 20:18 20 02/20/17 17:55 97/57 98 02/20/17 15:11 18 02/20/17 14:57 19 02/20/17 14:54 104/95 97 02/20/17 13:00 - Physical Examination General: Appears Well, No Apparent Distress HEENT: Positive: PERRL, Mucus Membranes Moist Neck: Positive: neck supple, trachea midline Cardiac: Positive: Reg Rate and Rhythm Lungs: Positive: clear to auscultation Neuro: Positive: Grossly Intact Abdomen: Positive: Soft, Active Bowel Sounds. Negative: Tender, Distended /Rectal: Normal Prostate, No Masses Skin: Positive: Clear Incision: Cardiac Cath Site Musculoskeletal: No Pain, Normal Range of Motion Gait: Normal Gait Extremities: Present: normal. Absent: edema - Labs and Meds CBC 02/21/17 Range/Units 03:25 WBC 10.1 (4.5-11.0) K/mm3 RBC 4.50 (3.65-5.03) M/mm3 Hgb 11.6 (10.1-14.3) gm/dl Hct 36.2 (30.3-42.9) % Plt Count 295 (140-440) K/mm3 Comprehensive Metabolic Panel 02/21/17 Range/Units 03:25 Sodium 137 (137-145) mmol/L Potassium 4.5 (3.6-5.0) mmol/L Chloride 102.3 (98-107) mmol/L Carbon Dioxide 20 L (22-30) mmol/L BUN 19 H (7-17) mg/dL Creatinine 1.2 (0.7-1.2) mg/dL Glucose 185 H (65-100) mg/dL Calcium 10.5 H (8.4-10.2) mg/dL - Imaging and Cardiology Pharmacologic stress test: report reviewed (no inducible arrhythmia normal perfusion no ischemia and normal LV function) Echo: report reviewed (normal LV function mild LVH no significant regurgitations ) - Telemetry EKG Rhythm: Sinus Rhythm (no SVT or A. fib noted)
[2017-02-21] MEDS ORDERED: NACL ONE (14:35)
[2017-02-21] MEDS: CARDIZEM CD PO SCH (15:54)
[2017-02-21] MEDS: DIOVAN PO SCH (15:54)
[2017-02-21] MEDS: GLUCOPHAGE PO SCH (15:54)
[2017-02-21] MEDS: HCTZ PO SCH (15:54)
--- NOTE | 2017-02-21 16:34 | Cat Scan Report ---
FINAL REPORT EXAM: CT ANGIO CHEST HISTORY: elevated d-dimer TECHNIQUE: Enhanced CT of the chest at 1.25 mm axial intervals following a pulmonary embolism protocol. Coronal and sagittal imaging were also obtained. Coronal oblique MIP projections were obtained. Visualization of the pulmonary arteries is limited as the bolus timing is more accurately focus to the aortic arch than the pulmonary arteries. Contrast: 100 ml of Omnipaque 350 given IV. PRIORS: None. FINDINGS: There is no evidence for pulmonary embolism in the main pulmonary artery, right and left pulmonary arteries or their major distributions. However, CT does not exclude distal pulmonary emboli. Otherwise, the lung parenchyma are expanded and clear with no evidence for parenchymal nodules, infiltrates, congestion, or pleural effusion. There is no evidence for mediastinal, hilar, or axillary adenopathy. Cardiovascular structures are within normal limits. Images through the lung bases include the upper abdomen which show a 1.7 cm nodule in the right adrenal gland. A 1.4 cm nodule in the left adrenal gland is noted. Prominence of the upper pole right renal calyx is seen although not completely imaged. There is a 3.6 x 3.5 cm low-density multilobulated cystic structure between the posterior wall of the stomach and the body of the pancreas. Etiology is uncertain but may represent a cyst off the pancreas. Bony structures demonstrate no focal abnormalities. In the left breast, there is a 1.7 x 3.2 cm (axial image 84) low-density focus with stellate margins. This is probably residual seroma or hematoma from a prior surgery. However, findings should be correlated with patient history and/or mammograms. IMPRESSION: 1. no evidence for pulmonary embolism. 2. Numerous findings in the upper abdomen which warrant further evaluation with CT. These include bilateral adrenal nodules, multilobulated cystic structure between the pancreas and stomach, and right upper pole pelvocaliectasis 3. Hypodense focus in the left breast, probably residual seroma or hematoma from prior surgery. However, findings should be correlated with patient history and/or mammograms.
--- NOTE | 2017-02-21 22:34 | Treadmill Report ---
REASON FOR STUDY: SVT and shortness of breath. READING PHYSICIAN: Gen Levine M.D. IMAGING PROTOCOL: The patient received 10 mCi of Technetium 99m Tetrofosmin for resting image and 28 mCi of Technetium 99m Tetrofosmin for stress imaging. The imaging for the whole procedure was completed 30-90 minutes following the initial injection of Technetium 99m tetrofosmin. The SPECT imaging in the 180 degree arc was performed in the right anterior oblique projection. Computerized reconstruction of the images was performed for analysis. IMAGING RESULTS: Normal cavity size from stress to rest. Normal distribution of radionuclide in the anterior, inferior, septal, and apical regions. Gated SPECT greater than 65% with no wall motion abnormality. The patient infused Lexiscan with no EKG changes. SUMMARY: 1. Negative Lexiscan EKG. 2. Normal rest and stress myocardial perfusion scan. No significant stress ischemia. No wall motion abnormality. Gated SPECT 68%. JOB# [id number] MARCUS/BJ
[2017-02-21] MEDS: ZOCOR PO SCH (22:59)
[2017-02-22] MEDS: DUONEB 0.5 MG-3 MG/3 ML SOLN IH SCH ×2 (01:44→08:21)
[2017-02-22] MEDS: BROVANA NEBU IH SCH (08:00)
[2017-02-22] MEDS: PULMICORT IH SCH (08:00)
[2017-02-22 09:08] VITALS: BP 113/65
[2017-02-22] MEDS: NOVOLOG SUB-Q SCH ×2 (09:16→13:23)
--- NOTE | 2017-02-22 09:47 | Progress Note ---
Assessment and Plan svt sob htn chol dm copd rec: cont cardizem, patient has normal LV function echocardiogram no further episodes SVT with normal ischemia patient may be discharged on Cardizem and home medications and follow-up for cardiology in the office - Patient Problems (1) SOBOE (shortness of breath on exertion) Current Visit: Yes Status: Acute (2) Hyperlipemia, mixed Current Visit: Yes Status: Chronic (3) Diabetes mellitus Current Visit: Yes Status: Chronic Qualifiers: Diabetes mellitus type: type 2 Diabetes mellitus complication status: without complication Diabetes mellitus complication detail: D Diabetic retinopathy severity: D Proliferative retinopathy type: P Diabetes mellitus macular edema: D Diabetes mellitus long term care pharmacist insulin use: with long term care pharmacist use Laterality: L Chronic kidney disease stage: C Qualified Code(s): E11.9 - Type 2 diabetes mellitus without complications; Z79.4 - termite control technician (current) use of insulin (4) Hypertension Current Visit: Yes Status: Chronic Qualifiers: Hypertension type: essential hypertension Qualified Code(s): I10 - Essential (primary) hypertension (5) SVT (supraventricular tachycardia) Current Visit: Yes Status: Acute (6) COPD (chronic obstructive pulmonary disease) Current Visit: Yes Status: Chronic Qualifiers: COPD type: C Chronic bronchitis type: simple Emphysema type: E Qualified Code(s): J41.0 - Simple chronic bronchitis Subjective Date of service: 02/22/17 Principal diagnosis: svt Interval history: pt has no chest pain Objective Vital Signs Temp Pulse Pulse Pulse Resp Resp BP 02/22/17 08:58 97.3 F L 76 18 02/22/17 08:19 74 20 02/22/17 07:58 67 20 02/22/17 04:10 98.0 F 80 20 02/22/17 00:15 97.6 F 82 18 02/21/17 21:50 97 H 02/21/17 20:52 98.1 F 86 20 02/21/17 18:28 98.7 F 80 18 02/21/17 14:30 98.7 F 98 H 20 02/21/17 11:26 90 20 02/21/17 11:02 102 H 20 02/21/17 09:53 105 H 131/70 02/21/17 09:52 106 H 133/70 02/21/17 09:51 104 H 135/80 02/21/17 09:50 105 H 153/76 05/14/17 09:49 101 H 141/74 BP Pulse Ox 02/22/17 08:58 113/65 99 02/22/17 08:19 02/22/17 07:58 02/22/17 04:10 148/70 100 02/22/17 00:15 107/56 97 02/21/17 21:50 02/21/17 20:52 125/66 96 02/21/17 18:28 149/79 96 02/21/17 14:30 119/66 96 02/21/17 11:26 02/21/17 11:02 02/21/17 09:53 02/21/17 09:52 02/21/17 09:51 02/21/17 09:50 02/21/17 09:49 - Physical Examination General: Appears Well, No Apparent Distress HEENT: Positive: PERRL, Mucus Membranes Moist Neck: Positive: neck supple, trachea midline Cardiac: Positive: Reg Rate and Rhythm Lungs: Positive: clear to auscultation Neuro: Positive: Grossly Intact Abdomen: Positive: Soft, Active Bowel Sounds. Negative: Tender, Distended /Rectal: Normal Prostate, No Masses Skin: Positive: Clear Incision: Cardiac Cath Site Musculoskeletal: No Pain, Normal Range of Motion Gait: Normal Gait Extremities: Present: normal. Absent: edema - Imaging and Cardiology Echo: report reviewed (normal LV function mild LVH no significant regurgitations )
--- NOTE | 2017-02-22 10:12 | Discharge Summary ---
Providers - Providers Date of Admission: 02/19/17 17:27 Date of discharge: 02/22/17 Attending physician: JIGNA CLARKE 02/20/17 09:11 Consult to Physician [CONS] Routine Consulting Provider: FRANK NUNEZ Reason For Exam: svt Place consult to:: [facility] Notified:: a service Phone number called:: [phone] Was contact made?: Yes If yes, spoke with:: jacqueline Time called:: 09:52 Primary care physician: ETHYLBENZENE CONVERTER OPERATOR Hospitalization Reason for admission: soc, palpitations Condition: Stable Hospital course: This is a 66-year-old female with past medical history of hypertension, hyperlipidemia and diabetes mellitus type 2 who presented to the emergency room with complaints of dyspnea and palpitations. Patient was found to have SVT treated with adenosine with conversion back to normal sinus rhythm. Patient denied any previous history of palpitations or intake of caffeine/chocolate. Patient did report some shortness of breath on exertion. Patient underwent further evaluation with an echocardiogram which revealed global left ventricular systolic function that was normal and an EF 55-60%. Left atrium was normal in size with no visual thrombus identified and no evidence of aortic regurgitation or mitral regurgitation. Right ventricular systolic pressure estimated at 15 mmHg. Stress thallium that was completed was found to be negative. CT of the chest reveal no evidence of pulmonary embolism but showed numerous findings in the abdomen which included bilateral adrenal nodules and multi-lobulated cystic structure between the pancreas in the stomach. Patient also had a hypodense focus in the left breast which most likely represent a residual seroma or hematoma. Patient needs outpatient mammogram. CT scan of the abdomen and pelvis was completed The patient was felt to have received maximal hospital benefit. Dedicated discharge time 35 minutes. Disposition: DISCHARGED TO HOME OR SELFCARE Time spent for discharge: 35 Core Measure Documentation - Palliative Care Palliative Care/ Comfort Measures: Not Applicable - Core Measures Any of the following diagnoses?: none Exam - Constitutional Vitals: Temp Pulse Resp BP Pulse Ox 97.3 F L 76 18 113/65 99 02/22/17 08:58 02/22/17 08:58 02/22/17 08:58 02/22/17 08:58 02/22/17 08:58 General appearance: Present: no acute distress, well-nourished - EENT Eyes: Present: PERRL ENT: hearing intact, clear oral mucosa - Neck Neck: Present: supple, normal ROM - Respiratory Respiratory effort: normal Respiratory: bilateral: CTA - Cardiovascular Heart Sounds: Present: S1 & S2. Absent: rub, click - Extremities Extremities: pulses symmetrical, No edema Peripheral Pulses: within normal limits - Abdominal General gastrointestinal: Present: soft, non-tender, non-distended, normal bowel sounds Female genitourinary: Present: normal - Integumentary Integumentary: Present: clear, warm, dry - Musculoskeletal Musculoskeletal: gait normal, strength equal bilaterally - Psychiatric Psychiatric: appropriate mood/affect, intact judgment & insight - Neurologic Neurologic: CNII-XII intact, moves all extremities Plan Activity: no restrictions Weight Bearing Status: Full Weight Bearing Diet: diabetic Additional Instructions: pt. needs outpatient mammogram Follow up with: PRIMARY CAREMD [Primary Care Provider] - 3-5 Days MAYANK MEDINA MD [Staff Physician] - 7 Days Prescriptions: Albuterol Sulfate [Ventolin HFA] 1 puff IH Q4-6H #30 hfa.aer.ad Budesoni/Formotero 160-4.5(Nf) [Symbicort 160-4.5 (Nf)] 2 puff IH BID #60 inha Diltiazem Cd [Cardizem CD] 120 mg PO QDAY #30 capsule metFORMIN [Glucophage] 500 mg PO QDAY #30 tablet Simvastatin [Zocor TAB] 20 mg PO QHS #30 tablet Valsartan/Hydrochlorothiazide [Valsartan-Hctz 80-12.5 mg Tab] 1 each PO DAILY # 30 tablet
[2017-02-22] MEDS: GLUCOPHAGE PO SCH (10:57)
[2017-02-22] MEDS: DIOVAN PO SCH (10:57)
[2017-02-22] MEDS: HCTZ PO SCH (10:57)
[2017-02-22] MEDS: CARDIZEM CD PO SCH (10:57)
--- NOTE | 2017-02-22 11:17 | Cat Scan Report ---
CT scan of abdomen and pelvis without IV contrast: History: Abnormal CT chest with adrenal nodules. Findings: Normal liver spleen and pancreas. Normal gallbladder. Right adrenal mass measuring 1.5 cm and left adrenal mass measuring 1.4 cm. There is a cystic mass measuring 2.7 cm in diameter between the pancreas and the stomach. There is 8mm diameter calculus noted at right UP junction with hydronephrosis proximally. There is nonobstructing 3 mm calculus noted near the mid pelvis and 4 mm calculus in the adjacent region right kidney. Several calculi are noted at left kidney. In the upper pole measures 2 mm, at the mid pole measures 3 mm, in the lower pole anterior measures 3.5 mm. Decompressed urinary bladder appears unremarkable. No free intraperitoneal fluid or air. No evidence of adenopathy. Diverticulosis sigmoid colon. Right ovarian vein thrombosis. Impression: Multiple nonobstructing calculi right and left kidney. Obstructing calculus at the right UP junction. Bilateral adrenal masses probably adenomas or cysts. There is a cystic mass noted between the body of the pancreas and the stomach probably a pseudocyst or diverticulum among others. Diverticulosis colon.
== END 2017-02-22 14:05 | disposition home or self-care (01) | DRG 191 ==
LOC: ED 11:09 → 4A 17:27
PROVIDERS: ADMIT Internal Medicine; ATTEND Hospitalist
DX: J44.1 Chronic obstructive pulmonary disease with (acute) exacerbation (principal); I47.1 Supraventricular tachycardia; I10 Essential (primary) hypertension; E11.9 Type 2 diabetes mellitus without complications; N64.89 Other specified disorders of breast; E78.2 Mixed hyperlipidemia; Z98.51 Tubal ligation status; Z85.3 Personal history of malignant neoplasm of breast; Z82.49 Family history of ischemic heart disease and other diseases of the circulatory system; Z79.4 Long term (current) use of insulin
CPT/HCPCS: 36415; 71010; 71275; 74176; 78452; 80048; 80053; 82962; 83036; 83735; 83880; 84439; 84443; 85007; 85025; 85379; 85610; 85730; 93005; 93010; 93017; 93306; 94640; A9502; J1815; J2785; J2920; Q9967

== ENCOUNTER 2021-10-13 16:46 | Observation (INO) | payer MEDICARE ==
[2021-10-13] MEDS ORDERED: ASPIRIN 81 MG TAB CHEW PO ONE (17:04)
--- NOTE | 2021-10-13 17:10 | Emergency Department Report ---
ED Chest Pain HPI - General Chief Complaint: Chest Pain Stated Complaint: chest tightness with exertion Time Seen by Provider: 10/13/21 16:55 Source: patient, EMS Mode of arrival: Stretcher Limitations: No Limitations - History of Present Illness Initial Comments: Patient is 70 years old female with history of hypertension, diabetes and congestive heart failure. Patient brought to the emergency room via EMS from home for evaluation of left sided chest pain, tightness in nature with no radiation. Patient stated pain started 1 hour ago. Upon arrival to the ER patient stated that pain is better now is 3 out of 10. Patient denied any fever chills or cough. MD Complaint: chest pain -: hour(s) Onset: during rest Pain Location: left chest Severity scale (0 -10): 3 Quality: tightness Consistency: intermittent - Related Data Home Medications Medication Instructions Recorded Confirmed Last Taken Fexofenadine HCl 180 mg PO DAILY 02/16/18 10/14/21 10/13/21 Albuterol Mdi (or & Nicu Only) 2 puff IH Q4H PRN 10/14/21 10/14/21 10/13/21 [ProAir HFA Inhaler] AtorvaSTATin [Lipitor] 40 mg PO QHS 10/14/21 10/14/21 10/13/21 Budesonide/Formoterol Fumarate 2 puff IH BID 10/14/21 10/14/21 10/13/21 [Symbicort 160-4.5 Mcg Inhaler] DULoxetine [Cymbalta] 30 mg PO QDAY 10/14/21 10/14/21 10/13/21 Iron Fum,Ps/Folic/Bcomp,C No.9 1 each PO QDAY 10/14/21 10/14/21 10/12/21 [Folivane-Plus Capsule] Olmesartan/Hydrochlorothiazide 1 each PO QDAY 10/14/21 10/14/21 10/13/21 [Olmesartan-Hctz 40-25 mg Tab] Pioglitazone HCl [Actos] 30 mg PO QDAY 10/14/21 10/14/21 10/13/21 Pregabalin 75 mg PO BID 10/14/21 10/14/21 10/12/21 atenoloL [Tenormin] 25 mg PO DAILY 10/14/21 10/14/21 10/13/21 Previous Rx's Medication Instructions Recorded Last Taken Type Aspirin EC [Ecotrin] 325 mg PO QDAY tablet 10/14/21 Unknown Rx Allergies Allergy/AdvReac Type Severity Reaction Status Date / Time No Known Allergies Allergy Verified 10/14/21 10:18 Heart Score - HEART Score History: Moderately suspicious EKG: Non-specific Age: > 65 Risk factors: > 3 risk factors or hx of atherosclerotic disease Troponin: < normal limit HEART Score: 6 - EKG Read Time Time EKG Completed: 17:15 EKG Read Time: 17:15 - Critical Actions Critical Actions: 4-6 pts:12-16.6% risk of adverse cardiac event. Should be admitted ED Review of Systems ROS: Stated complaint: chest tightness with exertion Other details as noted in HPI Comment: All other systems reviewed and negative Constitutional: denies: chills, fever Respiratory: denies: cough, shortness of breath, SOB with exertion, SOB at rest Cardiovascular: chest pain. denies: palpitations, dyspnea on exertion Gastrointestinal: denies: abdominal pain, nausea, vomiting Musculoskeletal: denies: back pain Neurological: denies: headache, weakness ED Past Medical Hx - Past Medical History Hx Hypertension: Yes Hx Congestive Heart Failure: Yes Hx Diabetes: Yes Hx Kidney Stones: Yes Hx Asthma: Yes - Surgical History Additional Surgical History: tubaligation - Social History Smoking Status: Former Smoker - Medications Home Medications: Home Medications Medication Instructions Recorded Confirmed Last Taken Type Fexofenadine HCl 180 mg PO DAILY 02/16/18 10/14/21 10/13/21 History Albuterol Mdi (or & Nicu Only) 2 puff IH Q4H PRN 10/14/21 10/14/21 10/13/21 History [ProAir HFA Inhaler] Aspirin EC [Ecotrin] 325 mg PO QDAY tablet 10/14/21 Unknown Rx AtorvaSTATin [Lipitor] 40 mg PO QHS 10/14/21 10/14/21 10/13/21 History Budesonide/Formoterol Fumarate 2 puff IH BID 10/14/21 10/14/21 10/13/21 History [Symbicort 160-4.5 Mcg Inhaler] DULoxetine [Cymbalta] 30 mg PO QDAY 10/14/21 10/14/21 10/13/21 History Iron Fum,Ps/Folic/Bcomp,C No.9 1 each PO QDAY 10/14/21 10/14/21 10/12/21 History [Folivane-Plus Capsule] Olmesartan/Hydrochlorothiazide 1 each PO QDAY 10/14/21 10/14/21 10/13/21 History [Olmesartan-Hctz 40-25 mg Tab] Pioglitazone HCl [Actos] 30 mg PO QDAY 10/14/21 10/14/21 10/13/21 History Pregabalin 75 mg PO BID 10/14/21 10/14/21 10/12/21 History atenoloL [Tenormin] 25 mg PO DAILY 10/14/21 10/14/21 10/13/21 History ED Physical Exam - General Limitations: No Limitations General appearance: alert, in no apparent distress - Head Head exam: Present: atraumatic, normocephalic, normal inspection - Eye Eye exam: Present: normal appearance, PERRL - ENT ENT exam: Present: normal exam, normal orophraynx, mucous membranes moist - Neck Neck exam: Present: normal inspection, full ROM. Absent: tenderness, meningismus - Respiratory Respiratory exam: Present: normal lung sounds bilaterally - Cardiovascular Cardiovascular Exam: Present: regular rate, normal rhythm, normal heart sounds - GI/Abdominal GI/Abdominal exam: Present: soft, normal bowel sounds. Absent: distended, tenderness, guarding, rebound, rigid, organomegaly, mass, bruit, pulsatile mass, hernia - Extremities Exam Extremities exam: Present: normal inspection, full ROM, normal capillary refill. Absent: tenderness - Back Exam Back exam: Present: normal inspection, full ROM. Absent: CVA tenderness (R), CVA tenderness (L) - Neurological Exam Neurological exam: Present: alert, oriented X3, CN II-XII intact - Psychiatric Psychiatric exam: Present: normal mood - Skin Skin exam: Present: warm, intact, normal color ED Course Vital Signs 10/13/21 10/14/21 10/14/21 16:51 00:00 05:40 Temperature 98.6 F 97.5 F L 98.0 F Pulse Rate 61 77 66 Respiratory 16 16 15 Rate Blood Pressure Blood Pressure 136/77 117/78 129/66 [Right] O2 Sat by Pulse 95 99 97 Oximetry 10/14/21 10/14/21 10/14/21 09:38 10:04 10:05 Temperature Pulse Rate Respiratory Rate Blood Pressure 124/72 141/81 138/72 Blood Pressure [Right] O2 Sat by Pulse Oximetry 10/14/21 10/14/21 10/14/21 10:06 10:07 10:08 Temperature Pulse Rate Respiratory Rate Blood Pressure 130/75 136/70 132/74 Blood Pressure [Right] O2 Sat by Pulse Oximetry 10/14/21 10/14/21 10/14/21 13:00 14:00 15:00 Temperature Pulse Rate 61 63 83 Respiratory 14 14 17 Rate Blood Pressure Blood Pressure 130/75 117/69 102/59 [Right] O2 Sat by Pulse 98 98 98 Oximetry ED Medical Decision Making - Lab Data Result diagrams: 10/14/21 08:00 10/14/21 08:00 - EKG Data -: EKG Interpreted by Me EKG shows normal: sinus rhythm Rate: normal - EKG Data Interpretation: no acute changes - Radiology Data Radiology results: report reviewed - Medical Decision Making Patient is 70 years old female with history of hypertension, diabetes and congestive heart failure. Patient brought to the emergency room via EMS from home for evaluation of left sided chest pain, tightness in nature with no radiation. Patient stated pain started 1 hour ago. Upon arrival to the ER patient stated that pain is better now is 3 out of 10. Patient denied any fever chills or cough. EKG is unremarkable. Labs reviewed and showed unremarkable including a negative troponin. Chest x-ray showed no acute abnormalities. I discussed the patient I discussed the patient with Dr. Hart, he agreed to admit the patient to medical service for further management. Critical care attestation.: If time is entered above; I have spent that time in minutes in the direct care of this critically ill patient, excluding procedure time. ED Disposition Clinical Impression: Acute chest pain Disposition: 02 SHORT TERM HOSPITAL Is pt being admited?: Yes Condition: Stable
--- NOTE | 2021-10-13 17:47 | XRay Report ---
CHEST 1 VIEW 10/13/2021 5:36 PM INDICATION / CLINICAL INFORMATION: Chest Pain X 1 HOUR. COMPARISON: 02/16/2018 FINDINGS: SUPPORT DEVICES: None. HEART / MEDIASTINUM: No significant abnormality. LUNGS / PLEURA: No significant pulmonary or pleural abnormality. No pneumothorax. ADDITIONAL FINDINGS: No significant additional findings. IMPRESSION: 1. No acute findings. Signer Name: Juan Diego Arriaga MD Signed: 10/13/2021 5:43 PM Workstation Name: [id number]
[2021-10-13 19:02] LABS: INR 0.86 (0.87-1.13)
[2021-10-13 19:05] LABS: Mean Corpuscular HGB Conc 30 % (30-34); Mean Corpuscular Volume 84 fl (79-97); Platelet Count 391 K/mm3 (140-440); Red Blood Count 4.42 M/mm3 (3.65-5.03)
[2021-10-13 19:06] LABS: Hematocrit 37.1 % (30.3-42.9); Hemoglobin 11.3 gm/dl (10.1-14.3)
[2021-10-13 19:18] LABS: Alanine Aminotransferase 53 units/L (7-56); Albumin 3.8 g/dL (3.9-5); BUN/Creatinine Ratio 18; Blood Urea Nitrogen 21 mg/dL (7-17); Calcium 11.5 mg/dL (8.4-10.2); Hemolysis Index 54
[2021-10-13 19:19] LABS: Bilirubin,Direct < 0.2 mg/dL (0-0.2)
[2021-10-13 19:27] LABS: Partial Thromboplastin Time < 20.0 Sec. (24.2-36.6)
--- NOTE | 2021-10-13 23:25 | History and Physical Report ---
History of Present Illness Date of examination: 10/13/21 Date of admission: 10/13/21 21:42 Chief complaint: Chest Pain History of present illness: 70-year-old female with known history of hypertension, diabetes mellitus and congestive heart failure brought into the emergency room by EMS today complaining of left-sided chest pain. Pain felt like tightness with no radiation. There was no no relieving or exacerbating factor. She denies any headache or dizziness denies any diaphoresis. Patient denies any nausea vomiting no abdominal pain. On a scale of 10 pain was about 6/10 in severity initially but has not subsided to about 3/10. Pain felt like tightness lasting a few minutes. Patient denies any sick contacts and no recent travel. Denies any contact with anyone with COVID-19. Patient is fully vaccinated against COVID-19. Work-up in the emergency room today including troponin, chest x-ray, EKG showed no acute findings. Patient has been admitted for chest pain evaluation. Past History Past Medical History: diabetes, heart failure, hypertension, other (Asthma,Kidney stones) Past Surgical History: Other (Tubal ligation) Social history: smoking (Former smoker) Family history: no significant family history Medications and Allergies Allergies Allergy/AdvReac Type Severity Reaction Status Date / Time No Known Allergies Allergy Verified 02/20/17 00:32 Home Medications Medication Instructions Recorded Confirmed Last Taken Type Tamoxifen Citrate 10 mg PO QDAY 02/19/17 02/16/18 02/16/18 History Simvastatin (Nf) [Zocor TAB] 20 mg PO QHS #30 tablet 02/22/17 02/16/18 02/16/18 Rx Valsartan/Hydrochlorothiazide 1 each PO DAILY #30 tablet 02/22/17 02/16/18 02/16/18 Rx [Valsartan-Hctz 80-12.5 mg Tab] metFORMIN [Glucophage] 500 mg PO QDAY #30 tablet 02/22/17 02/16/18 02/16/18 Rx Fexofenadine HCl 180 mg PO DAILY 02/16/18 02/16/18 02/16/18 History dilTIAZem CD [Cardizem CD] 240 mg PO QDAY 02/16/18 02/16/18 02/16/18 History Albuterol Sulfate [Ventolin HFA] 1 puff IH Q4-6H #30 hfa.aer.ad 02/19/18 Unknown Rx oxyCODONE /ACETAMINOPHEN [Percocet 1 tab PO Q6H PRN #12 tablet 02/19/18 Unknown Rx 5/325 mg] Review of Systems Constitutional: no fever, no chills Ears, nose, mouth and throat: no nasal congestion, no sore throat Cardiovascular: chest pain, no palpitations Respiratory: no cough, no shortness of breath Gastrointestinal: no abdominal pain, no nausea, no vomiting, no diarrhea Genitourinary Female: no pelvic pain, no flank pain, no dysuria, no hematuria Musculoskeletal: no neck pain, no low back pain Integumentary: no rash, no pruritis Neurological: no headaches, no confusion Psychiatric: no anxiety, no depression Endocrine: no polyphagia, no polydipsia, no polyuria, no nocturia Exam - Constitutional Vitals: Temp Pulse Resp BP Pulse Ox 98.6 F 61 16 136/77 95 10/13/21 16:51 10/13/21 16:51 10/13/21 16:51 10/13/21 16:51 10/13/21 16:51 General appearance: Present: no acute distress, well-nourished - EENT Eyes: Present: PERRL, EOM intact. Absent: scleral icterus ENT: hearing intact, clear oral mucosa, dentition normal - Neck Neck: Present: supple, normal ROM - Respiratory Respiratory effort: normal Respiratory: bilateral: CTA - Cardiovascular Rhythm: regular Heart Sounds: Present: S1 & S2. Absent: systolic murmur, diastolic murmur, rub, click - Extremities Extremities: no ischemia, pulses intact, pulses symmetrical, No edema, normal temperature, normal color, Full ROM Peripheral Pulses: within normal limits - Abdominal General gastrointestinal: Present: soft, non-tender, non-distended, normal bowel sounds. Absent: mass - Integumentary Integumentary: Present: clear, warm, dry. Absent: rash - Musculoskeletal Musculoskeletal: strength equal bilaterally - Psychiatric Psychiatric: appropriate mood/affect, intact judgment & insight, memory intact, cooperative - Neurologic Neurologic: CNII-XII intact, no focal deficits, moves all extremities HEART Score - HEART Score History: Moderately suspicious EKG: Non-specific Age: > 65 Risk factors: > 3 risk factors or hx of atherosclerotic disease Troponin: Troponin T < 0.010 ng/mL (0.00-0.029) 10/13/21 20:00 Troponin: < normal limit HEART Score: 6 - Critical Actions Critical Actions: 4-6 pts:12-16.6% risk of adverse cardiac event. Should be admitted Results - Labs CBC & Chem 7: 10/13/21 18:21 10/13/21 18:21 Labs: Abnormal lab results 10/13/21 10/13/21 10/13/21 Range/Units 18:21 18:21 18:21 WBC 11.1 H (4.5-11.0) K/mm3 MCH 26 L (28-32) pg RDW 16.0 H (13.2-15.2) % INR 0.86 L (0.87-1.13) APTT < 20.0 L (24.2-36.6) Sec. Carbon Dioxide 21 L (22-30) mmol/L BUN 21 H (7-17) mg/dL Glucose 101 H (65-100) mg/dL Calcium 11.5 H (8.4-10.2) mg/dL AST 45 H (5-40) units/L Albumin 3.8 L (3.9-5) g/dL Assessment and Plan - Patient Problems (1) Acute chest pain Current Visit: Yes Status: Acute Plan to address problem: Patient admitted and placed on telemetry. We will check serial cardiac enzymes. Patient placed on daily aspirin, sublingual nitroglycerin and IV morphine as needed for chest pain. We will request cardiology evaluation. (2) Congestive heart failure (CHF) Current Visit: No Status: Acute Qualifiers: Heart failure type: unspecified Heart failure chronicity: unspecified Qualified Code(s): I50.9 - Heart failure, unspecified Plan to address problem: We will resume routine home medications. We will schedule for echocardiogram. (3) Diabetes mellitus Current Visit: No Status: Chronic Qualifiers: Diabetes mellitus type: type 2 Diabetes mellitus oil heaterman insulin use: with oil heaterman use Diabetes mellitus complication status: without complication Qualified Code(s): E11.9 - Type 2 diabetes mellitus without complications; Z79.4 - intermodal customer service (current) use of insulin Plan to address problem: We will monitor Accu-Cheks on sliding scale insulin. (4) Hyperlipidemia Current Visit: No Status: Chronic Qualifiers: Hyperlipidemia type: mixed hyperlipidemia Qualified Code(s): E78.2 - Mixed hyperlipidemia Plan to address problem: Will monitor lipid profile. We will resume routine home medications. (5) DVT prophylaxis Current Visit: No Status: Acute Plan to address problem: Patient placed on subcutaneous heparin. (6) Full code status Current Visit: Yes Status: Acute Plan to address problem: Patient is full code.
[2021-10-14] MEDS ORDERED: ONDANSETRON 4 MG/2 ML INJ IV PRN (06:01)
[2021-10-14] MEDS ORDERED: MAGNESIUM HYDROXIDE (MOM) ORAL LIQD UDC PO PRN (06:01)
[2021-10-14] MEDS ORDERED: ACETAMINOPHEN 325 MG TAB PO PRN ×2 (06:01)
[2021-10-14] MEDS ORDERED: NITROGLYCERIN 0.4 MG TAB SUBL SL PRN (06:01)
[2021-10-14] MEDS ORDERED: MORPHINE 2 MG/1 ML INJ IV PRN (06:01)
[2021-10-14] MEDS ORDERED: traMADol 50 MG TAB PO PRN (06:01)
[2021-10-14] MEDS ORDERED: MORPHINE 4 MG/1 ML INJ IV PRN ×2 (06:01)
[2021-10-14] MEDS ORDERED: DEXTROSE 50% IN WATER (25GM) 50 ML SYRINGE IV PRN (06:07)
[2021-10-14 08:24] LABS: Basophils % (Auto) 0.3 % (0.0-1.8); Eosinophils # (Auto) 0.1 K/mm3 (0.0-0.4); Hematocrit 34.1 % (30.3-42.9); Hemoglobin 10.6 gm/dl (10.1-14.3); Lymphocytes # (Auto) 1.3 K/mm3 (1.2-5.4); Lymphocytes % (Auto) 11.4 % (13.4-35.0); Mean Corpuscular HGB Conc 31 % (30-34); Mean Corpuscular Volume 82 fl (79-97); Monocytes # (Auto) 0.9 K/mm3 (0.0-0.8); Platelet Count 364 K/mm3 (140-440); Red Blood Count 4.18 M/mm3 (3.65-5.03); Red Cell Distribution Width 15.5 % (13.2-15.2)
[2021-10-14] MEDS: INSULIN LISPRO 100 UNIT/ML SUB-Q SCH ×3 (08:38→17:00)
[2021-10-14 08:41] LABS: Calcium 11.4 mg/dL (8.4-10.2)
[2021-10-14] MEDS ORDERED: REGADENOSON 0.4 MG/5 ML INJ IV ONE (09:50)
--- NOTE | 2021-10-14 10:25 | Discharge Summary ---
Providers - Providers Date of Admission: 10/13/21 21:42 Date of discharge: 10/14/21 Attending physician: JIGNA CLARKE 10/14/21 Consult to Cardiac Rehabilitation [CONS] Routine Reason For Exam: Phase I 10/14/21 06:02 Consult to Cardiology [CONS] Routine Consulting Provider: FRANK NUNEZ Reason For Exam: chest pain 10/14/21 06:07 Consult to Dietitian/Nutrition [CONS] Routine Physician Instructions: Reason For Exam: Reason for Consult: Diet education Primary care physician: AUSTEN KENNEDY Hospitalization Reason for admission: cp Condition: Stable Hospital course: 70-year-old female with known history of hypertension, diabetes mellitus and congestive heart failure brought into the emergency room by EMS complaining of left-sided chest pain. Pain felt like tightness with no radiation. There was no relieving or exacerbating factor. She denied any headache, dizziness or diaphoresis. Patient denied any nausea vomiting no abdominal pain. Patient is fully vaccinated against COVID-19. Work-up in the emergency room including troponin, chest x-ray, EKG showed no acute findings. Patient was admitted with diagnosis of chest pain. The patient underwent stress test and echocardiogram which are pending. If the studies are found to be negative, patient will discharge home. I discussed the case with cardiology saw the patient in consultation. Dedicated discharge time 32 minutes Disposition: 01 HOME / SELF CARE / HOMELESS Final Discharge Diagnosis (Prints w/discharge instructions): Chest pain with etiology likely secondary to GERD. Diabetes mellitus type 2, hypertension Core Measure Documentation - Palliative Care Palliative Care/ Comfort Measures: Not Applicable - Core Measures Any of the following diagnoses?: none Exam - Constitutional Vitals: Temp Pulse Resp BP Pulse Ox 98.0 F 66 15 129/66 97 10/14/21 05:40 10/14/21 05:40 10/14/21 05:40 10/14/21 05:40 10/14/21 05:40 General appearance: Present: no acute distress, well-nourished - EENT Eyes: Present: PERRL ENT: hearing intact, clear oral mucosa - Neck Neck: Present: supple, normal ROM - Respiratory Respiratory effort: normal Respiratory: bilateral: CTA - Cardiovascular Heart Sounds: Present: S1 & S2. Absent: rub, click - Extremities Extremities: pulses symmetrical, No edema Peripheral Pulses: within normal limits - Abdominal General gastrointestinal: Present: soft, non-tender, non-distended, normal bowel sounds Female genitourinary: Present: normal - Integumentary Integumentary: Present: clear, warm, dry - Musculoskeletal Musculoskeletal: gait normal, strength equal bilaterally - Psychiatric Psychiatric: appropriate mood/affect, intact judgment & insight - Neurologic Neurologic: CNII-XII intact, moves all extremities Plan Activity: advance as tolerated Weight Bearing Status: Weight Bear as Tolerated Diet: low fat, low cholesterol, low salt Follow up with: AUSTEN KENNEDY III, JAMES-BC [Primary Care Provider] - 3-5 Days
--- NOTE | 2021-10-14 11:11 | Nuclear Medicine Report ---
APPROVED REPORT Exam: Nuclear Stress Test Indication: Chest pain Patient Location: [facility] Room #: ed-03 Ht: 5 ft 4 in Wt: 180 lbs BSA: 1.87 m2 HR: 67 bpmBP: 124/72 mmHgBMI: 30.89 Rhythm: SINUS RHYTHM Stress Test Details Stress Test: Pharmacologic stress testing performed using 0.4 mg of regadenoson per 5 mL given IV over 10 seconds. Reason for pharmacologic stress test: physical limitation. HR Resting HR: 67 bpm Max HR Achieved: 93 bpm Max Heart Rate (APMHR): 148.982178 bpm Target HR (85% APMHR): 125.094517 bpm % of APMHR: 62.84 Recovery HR: 85 bpm HR response to stress: Normal HR response to stress BP Resting BP: 124/72 mmHg Max BP: 141/81 mmHg Recovery BP: 132/74 mmHg ECG Resting ECG: Sinus Rhythm Stress ECG: Sinus Rhythm Clinical Reason for Termination: Completed protocol Stress Symptoms: None, Abdominal discomfort, Chest pain, Dyspnea, Emesis NM EXAM: Myocardial Perfusion REST/STRESS Imaging Protocol: Rest Tc-99m/Stress Tc-99m 1 day Resting Data Rest SPECT myocardial perfusion imaging was performed in supine position 45 minutes following the intravenous injection of 10 mCi of Tc-99m Myoview. Time of rest injection: 0900 Pharmacologic Stress Pharmacologic stress test was performed by injecting Regadenoson 0.4 mg IV push followed by the intravenous injection of 28 mCi of Tc-99m Myoview. Time of stress injection: 1005 Gated Stress SPECT was performed 30 minutes after stress injection. The images were gated to evaluate regional wall motion and calculate left ventricular ejection fraction. Study Quality Study: excellent Lung Uptake: Normal Study Data TID = 1.02. Perfusion Wall Motion The rest and stress images show normal left ventricular wall motion. Nuclear Conclusion ECG Findings: negative for ischemia Clinical Findings: negative for ischemia Nuclear Findings: negative for ischemia Exercise Capacity: not assessed Left Ventricular Function: normal Normal study. No scintigraphic evidence for myocardial ischemia or scar. Normal left ventricular size and function with no regional wall motion abnormalities.
--- NOTE | 2021-10-14 12:11 | Electrocardiograph Report ---
[facility] Test Date: 2021-10-13 Test Time: 17:13:35 Pat Name: MAYDA RIVERA Department: Room: [place] [address] Gender: F Bridge Crew Member: TRUMAN : 1950 Requested By: JIMENA LOPEZ Order Number: [id number] Reading MD: Evan Gauthier Measurements Intervals [place] Rate: 60 P: 23 AK: 151 QRS: 8 QRSD: 86 T: 46 QT: 440 QTc: 442 Interpretive Statements Sinus rhythm No previous ECG available for comparison Electronically Signed On 10-14-2021 12:11:27 EST by Evan Gauthier
--- NOTE | 2021-10-14 12:22 | Consultation ---
History of Present Illness Consult date: 10/14/21 Requesting physician: CLARA SHELTON Consult reason: chest pain History of present illness: 68-year-old female with a past medical history of hypertension diabetes coronary artery disease and congestive heart failure who came to the ED with a complaint of chest pain x1 day prior to admission. Patient reports that she was lying in bed when she suddenly developed a chest tightness that was located on the left side of her chest. She rated the pain at a 8 out of 10 and denied any exacerbating or relieving factors. Patient reports that her pain was no longer present since she has been at the hospital. She associates some nausea with the pain. Patient denies shortness of breath, vomiting, diaphoresis, palpitations, lightheadedness, or weakness. Patient has previously been seen by Dr. Rangel of our group however patient reports she now follows with Dr. Colindres [facility]. Cardiology is consulted for chest pain Past History Past Medical History: diabetes, heart failure, hypertension, other (Asthma,Kidney stones) Past Surgical History: Other (Tubal ligation) Social history: smoking (Former smoker) Family history: no significant family history Medications and Allergies Allergies Allergy/AdvReac Type Severity Reaction Status Date / Time No Known Allergies Allergy Verified 10/14/21 10:18 Home Medications Medication Instructions Recorded Confirmed Last Taken Type Fexofenadine HCl 180 mg PO DAILY 02/16/18 10/14/21 10/13/21 History Albuterol Mdi (or & Nicu Only) 2 puff IH Q4H PRN 10/14/21 10/14/21 10/13/21 History [ProAir HFA Inhaler] Aspirin EC [Ecotrin] 325 mg PO QDAY tablet 10/14/21 Unknown Rx AtorvaSTATin [Lipitor] 40 mg PO QHS 10/14/21 10/14/21 10/13/21 History Budesonide/Formoterol Fumarate 2 puff IH BID 10/14/21 10/14/21 10/13/21 History [Symbicort 160-4.5 Mcg Inhaler] DULoxetine [Cymbalta] 30 mg PO QDAY 10/14/21 10/14/21 10/13/21 History Iron Fum,Ps/Folic/Bcomp,C No.9 1 each PO QDAY 10/14/21 10/14/21 10/12/21 History [Folivane-Plus Capsule] Olmesartan/Hydrochlorothiazide 1 each PO QDAY 10/14/21 10/14/21 10/13/21 History [Olmesartan-Hctz 40-25 mg Tab] Pioglitazone HCl [Actos] 30 mg PO QDAY 10/14/21 10/14/21 10/13/21 History Pregabalin 75 mg PO BID 10/14/21 10/14/21 10/12/21 History atenoloL [Tenormin] 25 mg PO DAILY 10/14/21 10/14/21 10/13/21 History Active Meds: Active Medications Acetaminophen (Acetaminophen 325 Mg Tab) 650 mg PO Q4H PRN PRN Reason: Pain MILD(1-3)/Fever >100.5/LEIVA Aspirin (Aspirin Ec 325 Mg Tab) 325 mg PO QDAY [facility] Dextrose (Dextrose 50% In Water (25gm) 50 Ml Syringe) 50 ml IV Q30MIN PRN; Protocol PRN Reason: Hypoglycemia Insulin Human Lispro (Insulin Lispro 100 Unit/Ml) 0 unit SUB-Q ACHS [facility]; Protocol Last Admin: 10/14/21 08:38 Dose: Not Given Documented by: Magnesium Hydroxide (Magnesium Hydroxide (Mom) Oral Liqd Udc) 30 ml PO Q4H PRN PRN Reason: Constipation Morphine Sulfate (Morphine 2 Mg/1 Ml Inj) 2 mg IV Q4H PRN PRN Reason: Pain, Moderate (4-6) Morphine Sulfate (Morphine 4 Mg/1 Ml Inj) 4 mg IV Q4H PRN PRN Reason: Pain , Severe (7-10) Morphine Sulfate (Morphine 4 Mg/1 Ml Inj) 2 mg IV Q5MIN PRN PRN Reason: Chest Pain unrelieved by NTG Nitroglycerin (Nitroglycerin 0.4 Mg Tab Subl) 0.4 mg SL Q5M PRN PRN Reason: Chest Pain Ondansetron HCl (Ondansetron 4 Mg/2 Ml Inj) 4 mg IV Q8H PRN PRN Reason: Nausea And Vomiting Sodium Chloride (Sodium Chloride 0.9% 10 Ml Flush Syringe) 10 ml IV BID [facility] Last Admin: 10/14/21 11:01 Dose: Not Given Documented by: Sodium Chloride (Sodium Chloride 0.9% 10 Ml Flush Syringe) 10 ml IV PRN PRN PRN Reason: LINE FLUSH Tramadol HCl (Tramadol 50 Mg Tab) 50 mg PO Q6H PRN PRN Reason: Pain, Moderate (4-6) Review of Systems Constitutional: no weight loss, no weight gain, no fever, no chills Ears, nose, mouth and throat: no nasal congestion, no nasal discharge, no sinus pressure, no sinus pain Cardiovascular: chest pain, no orthopnea, no palpitations, no rapid/irregular heart beat, no edema, no syncope, no shortness of breath Respiratory: no shortness of breath, no dyspnea on exertion Gastrointestinal: nausea, no abdominal pain, no vomiting, no diarrhea Musculoskeletal: no neck stiffness, no neck pain, no shooting arm pain Integumentary: no rash, no pruritis, no redness Neurological: no head injury, no transient paralysis Psychiatric: no anxiety, no memory loss Endocrine: no cold intolerance, no heat intolerance Hematologic/Lymphatic: no easy bruising, no easy bleeding Physical Examination Vital Signs Temp Pulse Resp BP Pulse Ox 98.6 F 61 16 136/77 95 10/13/21 16:51 10/13/21 16:51 10/13/21 16:51 10/13/21 16:51 10/13/21 16:51 General appearance: no acute distress HEENT: Positive: PERRL Neck: Positive: trachea midline Cardiac: Positive: Reg Rate and Rhythm Lungs: Positive: Normal Breath Sounds Neuro: Positive: Grossly Intact Abdomen: Positive: Soft Skin: Negative: Rash, Suspicious Lesions, Ulceration Extremities: Present: upper extr. pulses. Absent: edema Results 10/14/21 08:00 10/14/21 08:00 Cardiac Enzymes 10/13/21 Range/Units 18:21 AST 45 H (5-40) units/L Coagulation 10/13/21 Range/Units 18:21 PT 12.7 (12.2-14.9) Sec. INR 0.86 L (0.87-1.13) APTT < 20.0 L (24.2-36.6) Sec. CBC 10/13/21 10/14/21 Range/Units 18:21 08:00 WBC 11.1 H 11.3 H (4.5-11.0) K/mm3 RBC 4.42 4.18 (3.65-5.03) M/mm3 Hgb 11.3 10.6 (10.1-14.3) gm/dl Hct 37.1 34.1 (30.3-42.9) % Plt Count 391 364 (140-440) K/mm3 Lymph # (Auto) [employer] Grain [employer] 1.3 [place] # (Auto) Cash Grain Farmer 0.9 H Eos # (Auto) Cash Grain Farmer 0.1 Baso # (Auto) Cash Grain Farmer 0.0 Comprehensive Metabolic Panel 10/13/21 10/14/21 Range/Units 18:21 08:00 Sodium 137 139 (137-145) mmol/L Potassium 4.5 4.4 (3.6-5.0) mmol/L Chloride 100.6 101.6 (98-107) mmol/L Carbon Dioxide 21 L 23 (22-30) mmol/L BUN 21 H 25 H (7-17) mg/dL Creatinine 1.2 1.3 H (0.6-1.2) mg/dL Glucose 101 H 96 (65-100) mg/dL Calcium 11.5 H 11.4 H (8.4-10.2) mg/dL Direct Bilirubin < 0.2 (0-0.2) mg/dL Indirect Bilirubin 0.1 mg/dL AST 45 H (5-40) units/L ALT 53 (7-56) units/L Alkaline Phosphatase 96 (35-129) units/L Total Protein 8.1 (6.3-8.2) g/dL Albumin 3.8 L (3.9-5) g/dL - Imaging and Cardiology Echo: report reviewed EKG interpretations - Telemetry EKG Rhythm: Sinus Rhythm - EKG Sinus rhythms and dysrhythmias: sinus rhythm Chamber hypertrophy or enlargement: left ventricular hypertro Assessment and Plan 68-year-old female with a past medical history of hypertension diabetes coronary artery disease and congestive heart failure who came to the ED with a complaint of chest pain x1 day prior to admission Chest pain HTN h/o HFpEF CAD HLD DM Lexiscan MPI stress test 10/14/2021-normal study. No signs of ischemia or scar Echocardiogram 02/17/2018-There is trace tricuspid regurgitation.The left ventricular chamber size is normal.Global left ventricular systolic function is normal.Abnormal left ventricular diastolic filling is observed, consistent with impaired relaxation.The right ventricular cavity size is normal.The rigt ventricular global systolic function is mildly reduced. Nuclear Stress Test SPECT MULTI 04/12/2018- negative lexiscan ekg2. Myocardial perfusion imaging is normal. Overall left ventricular systolic function was normal without regionalwall motion abnormalities. The left ventricular ejection fraction was 60%. Plan: EKG shows sinus rhythm rate 60 with LVH. No acute ischemic changes. Troponins negative x3. Patient currently chest pain-free Lexiscan stress test showed no signs of ischemia Echocardiogram shows normal LV function with no significant abnormalities Cardiac status stable Patient should follow-up with their primary instructional designer 1 to 2 weeks following discharge Patient seen in conjunction with Dr. 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
[2021-10-14 15:55] VITALS: BP 102/59
[2021-10-15] MEDS ORDERED: ASPIRIN EC 325 MG TAB PO SCH (10:00)
== END 2021-10-14 20:00 | disposition home or self-care (01) ==
LOC: ED 16:46 → 4A 21:42
PROVIDERS: ADMIT Internal Medicine Geriatric Medicine; ATTEND Hospitalist
DX: R07.89 Other chest pain (principal); I11.0 Hypertensive heart disease with heart failure; I50.9 Heart failure, unspecified; E11.9 Type 2 diabetes mellitus without complications; I25.10 Atherosclerotic heart disease of native coronary artery without angina pectoris; I47.1 Supraventricular tachycardia; J44.9 Chronic obstructive pulmonary disease, unspecified; E78.2 Mixed hyperlipidemia; Z87.442 Personal history of urinary calculi; Z98.51 Tubal ligation status; Z87.891 Personal history of nicotine dependence; Z79.84 Long term (current) use of oral hypoglycemic drugs; Z79.4 Long term (current) use of insulin
CPT/HCPCS: 36415; 71045; 78452; 80048; 80076; 82962; 83880; 84484; 85025; 85610; 85730; 93005; 93017; 93306; 99285; A9502; G0378; J2785